=== PATIENT | male | born 1980 | race Caucasian/White ===

== ENCOUNTER 2018-05-08 17:25 | Inpatient (IN) | payer MEDICAID, OTHER ==
[~2018-05-08] VITALS: Ht 182.9 cm; Wt 82.3 kg
[2018-05-08 18:24] LABS: ANION GAP 13 mmol/L (8-16); CALCIUM, TOTAL 9.5 mg/dL (8.8-10.5); CARBON DIOXIDE 27 mmol/L (22-29); CHLORIDE 100 mmol/L (98-107); GLOMERULAR FILTR. RATE CALC > 60 mL/min (>60); GLUCOSE,RANDOM 89 mg/dL (70-110); POTASSIUM 4.3 mmol/L (3.5-5.1); SODIUM SERUM 140 mmol/L (136-145); UREA NITROGEN, BLOOD 18 mg/dL (7-18)
[2018-05-08] MEDS ORDERED: DiphenhydrAMINE HCL 50 MG/ML VIAL ONE (18:25)
[2018-05-08] MEDS ORDERED: HALOPERIDOL LACTATE 5 MG/ML VIAL ONE (18:25)
[2018-05-08] MEDS ORDERED: LORazepam 2 MG/ML VIAL ONE (18:25)
[2018-05-08 18:30] LABS: ALANINE AMINOTRANSFERASE 37 U/L (12-78); ALBUMIN 4.6 g/dL (3.4-5.0); ALKALINE PHOSPHATASE 68 U/L (46-116); ASPARTATE AMINOTRANSFERASE 58 U/L (15-37); BASOPHILS % (AUTO) 0.4 % (0.0-2.0); BILIRUBIN,TOTAL 0.9 mg/dL (0.1-1.0); EOSINOPHILS % (AUTO) 1.2 % (1.0-6.0); HEMATOCRIT 46.1 % (41-53); HEMOGLOBIN 16.3 g/dL (13.5-17.5); LYMPHOCYTES # (AUTO) 1.9 K/uL (1.0-4.8); LYMPHOCYTES % (AUTO) 22.6 % (22.0-44.0); MEAN CORPUSCULAR HEMOGLOBIN 33.9 pg (26.0-34.0); MEAN CORPUSCULAR HGB CONC 35.3 G/dL (31.0-37.0); MEAN CORPUSCULAR VOLUME 96 fL (80-100); MONOCYTES # (AUTO) 0.7 K/uL (0.1-1.0); MONOCYTES % (AUTO) 8.4 % (2.0-9.0); NEUTROPHILS # (AUTO) 5.5 K/uL (1.8-7.7); NEUTROPHILS % (AUTO) 67.4 % (40.0-70.0); PLATELET COUNT (AUTO) 288 K/uL (150-450); RED CELL DISTRIBUTION WIDTH 12.9 % (11.5-14.5); TOTAL PROTEIN, SERUM 8.7 g/dL (6.4-8.2)
[2018-05-08] MEDS ORDERED: LORazepam 2 MG/ML VIAL IM ONE (18:30)
[2018-05-08] MEDS ORDERED: HALOPERIDOL LACTATE 5 MG/ML VIAL IM ONE (18:30)
[2018-05-08] MEDS ORDERED: DiphenhydrAMINE HCL 50 MG/ML VIAL IM ONE (18:30)
[2018-05-08] MEDS ORDERED: QUEtiapine FUMARATE 100 MG TABLET PO PRN (20:00)
[2018-05-08] MEDS ORDERED: QUEtiapine FUMARATE 100 MG TABLET PO SCH (21:00)
[2018-05-09] VITALS (9 sets, daily range): BP systolic 114–129; BP diastolic 68–89
[2018-05-09 09:10] LABS: CHOL/HDL RATIO 2.2 (4.2-7.3); FREE T4 (FREE THYROXINE) 1.13 ng/dL (0.76-1.46); THYROID STIMULATING HORMONE 2.21 uIU/mL (0.36-3.74)
[2018-05-09] MEDS ORDERED: GuaiFENesin/D-METHORPHAN [SUGAR-FREE] 200-20MG/10 ML SYRUP UDCUP PO PRN (10:15)
[2018-05-09] MEDS ORDERED: MAGNESIUM HYDROXIDE SUSPENSION 30 ML UDCUP PO PRN (10:15)
[2018-05-09] MEDS ORDERED: MAG HYDROX/AL HYDROX/SIMETH ES 30 ML SUSPENSION UDCUP PO PRN (10:15)
[2018-05-09] MEDS ORDERED: LOPERAMIDE HCL 2 MG CAPSULE PO PRN (10:15)
[2018-05-09] MEDS ORDERED: TUBERCULIN, PURIFIED PROTEIN DERIVATIVE 5 TU/0.1 ML SYG ID ONE (10:15)
[2018-05-09] MEDS ORDERED: HydrOXYzine PAMOATE 50 MG CAPSULE PO PRN (10:15)
[2018-05-09] MEDS ORDERED: ACETAMINOPHEN 325 MG TABLET PO PRN (10:15)
[2018-05-09] MEDS: LORazepam 2 MG TABLET PO PRN (16:40)
[2018-05-09] MEDS: THIAMINE HCL 100 MG TABLET PO SCH (16:40)
[2018-05-09] MEDS: ZOLPIDEM TARTRATE 10 MG TABLET PO PRN (20:24)
[2018-05-10 06:08] VITALS: BP 128/87
[2018-05-10 08:14] VITALS: BP 123/60
[2018-05-10] MEDS: FOLIC ACID 1 MG TABLET PO SCH (08:28)
[2018-05-10] MEDS: THIAMINE HCL 100 MG TABLET PO SCH ×2 (08:29→16:35)
[2018-05-10] MEDS: NALTREXONE HCL 50 MG TABLET PO SCH (08:29)
[2018-05-10] MEDS: PARoxetine HCL 20 MG TABLET PO SCH (08:29)
[2018-05-10] MEDS: LORazepam 2 MG TABLET PO PRN ×2 (08:29→16:35)
[2018-05-10] MEDS: MULTIVITAMINS WITH MINERALS, THERAPEUTIC TABLET PO SCH (08:29)
[2018-05-10 16:00] VITALS: BP 136/85
[2018-05-10] MEDS ORDERED: NALT50TA PO (17:17)
[2018-05-10] MEDS ORDERED: PARO-37 PO (17:17)
[2018-05-10] MEDS: ZOLPIDEM TARTRATE 10 MG TABLET PO PRN (22:05)
[2018-05-11] MEDS ORDERED: MULT-1239 PO (05:07)
[2018-05-11] MEDS ORDERED: THIA100T67 PO (05:07)
[2018-05-11] MEDS ORDERED: PARO20TA24 PO (05:07)
[2018-05-11] MEDS ORDERED: FOLI1 PO (05:07)
[2018-05-11] MEDS ORDERED: NALT50TA6 PO (05:07)
[2018-05-11 08:46] VITALS: BP 138/80
[2018-05-11] MEDS: MULTIVITAMINS WITH MINERALS, THERAPEUTIC TABLET PO SCH (08:53)
[2018-05-11] MEDS: THIAMINE HCL 100 MG TABLET PO SCH (08:53)
[2018-05-11] MEDS: FOLIC ACID 1 MG TABLET PO SCH (08:53)
[2018-05-11] MEDS: PARoxetine HCL 20 MG TABLET PO SCH (08:53)
[2018-05-11] MEDS: NALTREXONE HCL 50 MG TABLET PO SCH (08:53)
== END 2018-05-11 09:55 | disposition home or self-care (01) | DRG 751 ==
LOC: EMS 17:26 → B3A 20:00 → B2S 05-10 08:58
PROVIDERS: ADMIT Psychiatry & Neurology Psychiatry; ATTEND Psychiatry & Neurology Psychiatry
DX: F33.2 Major depressive disorder, recurrent severe without psychotic features (principal); R45.851 Suicidal ideations; Z91.19 Patient's noncompliance with other medical treatment and regimen; F41.9 Anxiety disorder, unspecified; F12.20 Cannabis dependence, uncomplicated; F10.10 Alcohol abuse, uncomplicated; Y90.6 Blood alcohol level of 120-199 mg/100 ml; Z59.0 Homelessness; Z65.3 Problems related to other legal circumstances
CPT/HCPCS: 84436; 84439; 84443; 96372; 99285; G0480; J1200; J1630; J2060

== ENCOUNTER 2018-07-20 05:55 | Emergency (ER) | payer MEDICAID, OTHER ==
[~2018-07-20] VITALS: Ht 188 cm; Wt 95.5 kg
[~2018-07-20 05:55] MED LIST: NALT50TA PO; NALT50TA6 PO; PARO-37 PO; PARO20TA24 PO
[2018-07-20] MEDS ORDERED: HYDROCODONE/ACETAMINOPHEN 5-325 MG TABLET PO ONE (07:30)
[2018-07-20 07:31] VITALS: BP 120/84
== END 2018-07-20 08:16 | disposition home or self-care (01) ==
LOC: EMS 05:55
DX: S43.102A Unspecified dislocation of left acromioclavicular joint, initial encounter (principal); F32.9 Major depressive disorder, single episode, unspecified; F12.90 Cannabis use, unspecified, uncomplicated; V00.131A Fall from skateboard, initial encounter; Y93.89 Activity, other specified; Y92.89 Other specified places as the place of occurrence of the external cause; Y99.8 Other external cause status

== ENCOUNTER 2019-06-15 19:09 | Emergency (ER) | payer OTHER ==
[~2019-06-15] VITALS: Ht 188 cm; Wt 84.1 kg
[2019-06-15] MEDS ORDERED: BACITRACIN 0.9 GM PACKET OINTMENT TP ONE (19:45)
[2019-06-15] MEDS ORDERED: LIDOCAINE 1% 10 ML VIAL INJ ONE (19:45)
[2019-06-15] MEDS ORDERED: POVIDONE-IODINE 10% 15 ML SOLUTION UD TP ONE (19:45)
[2019-06-15] MEDS ORDERED: IBUPROFEN 800 MG TABLET PO ONE (21:15)
[2019-06-15 21:35] VITALS: BP 134/82
== END 2019-06-15 21:54 | disposition home or self-care (01) ==
LOC: EMS 19:10
DX: S02.2XXA Fracture of nasal bones, initial encounter for closed fracture (principal); S05.42XA Penetrating wound of orbit with or without foreign body, left eye, initial encounter; F10.10 Alcohol abuse, uncomplicated; F32.9 Major depressive disorder, single episode, unspecified; F12.90 Cannabis use, unspecified, uncomplicated; Z88.0 Allergy status to penicillin; Y90.9 Presence of alcohol in blood, level not specified; Y08.89XA Assault by other specified means, initial encounter; Y93.89 Activity, other specified; Y92.89 Other specified places as the place of occurrence of the external cause; Y99.8 Other external cause status
CPT/HCPCS: 12013; 70450; 99284; J3490

== ENCOUNTER 2019-11-03 07:27 | Emergency (ER) | payer OTHER ==
[~2019-11-03] VITALS: Ht 188 cm; Wt 77.3 kg
[2019-11-03] MEDS ORDERED: KETOROLAC TROMETHAMINE 30 MG/ML VIAL IM ONE (08:00)
[2019-11-03] MEDS ORDERED: LIDOCAINE 5% TRANSDERMAL PATCH TD ONE (08:00)
[2019-11-03] MEDS ORDERED: CYCLOBENZAPRINE HCL 10 MG TABLET PO ONE (08:00)
[2019-11-03 08:57] VITALS: BP 123/79
== END 2019-11-03 09:03 | disposition home or self-care (01) ==
LOC: EMS 07:28
DX: M54.5 Low back pain (principal); F32.9 Major depressive disorder, single episode, unspecified; F12.90 Cannabis use, unspecified, uncomplicated; G89.29 Other chronic pain; Z88.0 Allergy status to penicillin
CPT/HCPCS: 96372; 99283; J1885

== ENCOUNTER 2020-01-14 06:46 | Emergency (ER) | payer OTHER ==
[~2020-01-14] VITALS: Ht 188 cm; Wt 86.4 kg
[2020-01-14 06:47] VITALS: BP 112/69
[2020-01-14] MEDS ORDERED: LIDOCAINE 5% TRANSDERMAL PATCH TD ONE (07:15)
[2020-01-14] MEDS ORDERED: KETOROLAC TROMETHAMINE 60 MG/2 ML VIAL IM ONE (07:15)
== END 2020-01-14 08:15 | disposition home or self-care (01) ==
LOC: EMS 06:46
DX: M54.5 Low back pain (principal); G89.29 Other chronic pain; F41.9 Anxiety disorder, unspecified; F31.9 Bipolar disorder, unspecified; F17.200 Nicotine dependence, unspecified, uncomplicated; F12.90 Cannabis use, unspecified, uncomplicated; Z88.0 Allergy status to penicillin
CPT/HCPCS: 99283; J1885

== ENCOUNTER 2021-02-09 06:59 | Emergency (ER) | payer OTHER ==
[~2021-02-09] VITALS: Ht 188 cm; Wt 86.4 kg
[2021-02-09] MEDS ORDERED: IBUPROFEN 600 MG TABLET PO ONE (08:30)
[2021-02-09 08:45] VITALS: BP 137/81
== END 2021-02-09 08:55 | disposition home or self-care (01) ==
LOC: EMS 07:00
DX: S42.022A Displaced fracture of shaft of left clavicle, initial encounter for closed fracture (principal); V87.8XXA Person injured in other specified noncollision transport accidents involving motor vehicle (traffic), initial encounter; Y93.89 Activity, other specified; Y92.488 Other paved roadways as the place of occurrence of the external cause; Y99.8 Other external cause status
CPT/HCPCS: 10060; 29240; 71045; 99284

== ENCOUNTER 2023-12-15 00:56 | Emergency (ER) | payer OTHER ==
[~2023-12-15] VITALS: Ht 188 cm; Wt 90.9 kg
[2023-12-15 01:00] VITALS: TEMP 97.7
[2023-12-15] MEDS: ChlordiazePOXIDE HCL 25 MG CAPSULE PO ONE (01:21)
[2023-12-15] MEDS: SODIUM CHLORIDE 0.9% 1,000 ML IV ONE (01:23)
[2023-12-15 01:33] LABS: BASOPHILS % (AUTO) 0.3 % (0.0-2.0); EOSINOPHILS % (AUTO) 0.6 % (1.0-6.0); HEMATOCRIT 43.6 % (41-53); HEMOGLOBIN 15.4 g/dL (13.5-17.5); LYMPHOCYTES # (AUTO) 1.6 K/uL (1.0-4.8); LYMPHOCYTES % (AUTO) 22.1 % (22.0-44.0); MEAN CORPUSCULAR HEMOGLOBIN 34.8 pg (26.0-34.0); MEAN CORPUSCULAR HGB CONC 35.4 G/dL (31.0-37.0); MEAN CORPUSCULAR VOLUME 98 fL (80-100); MONOCYTES # (AUTO) 0.6 K/uL (0.1-1.0); MONOCYTES % (AUTO) 9.1 % (2.0-9.0); NEUTROPHILS # (AUTO) 4.8 K/uL (1.8-7.7); NEUTROPHILS % (AUTO) 67.9 % (40.0-70.0); PLATELET COUNT (AUTO) 226 K/uL (150-450); RED BLOOD CELL COUNT(AUTO) 4.43 MIL/uL (4.50-5.90); RED CELL DISTRIBUTION WIDTH 13.5 % (11.5-14.5)
[2023-12-15 01:39] LABS: PH,URINE DRUG SCREEN 5.5 (5.0-8.0)
[2023-12-15 01:40] LABS: ANION GAP 12 mmol/L (8-16); CALCIUM, TOTAL 9.1 mg/dL (8.8-10.5); CARBON DIOXIDE 28 mmol/L (22-29); CHLORIDE 96 mmol/L (98-107); CREATININE 1.05 mg/dL (0.60-1.30); GLOMERULAR FILTR. RATE CALC > 60 mL/min (>60); GLUCOSE,RANDOM 124 mg/dL (70-110); POTASSIUM 4.1 mmol/L (3.5-5.1); SODIUM SERUM 136 mmol/L (136-145); UREA NITROGEN, BLOOD 14 mg/dL (7-18)
[2023-12-15 01:45] LABS: ALCOHOL, URINE DRUG SCREEN POSITIVE (NEGATIVE); AMPHET/METH SCREEN,URINE NEGATIVE (NEGATIVE); BARBITURATE SCREEN, URINE NEGATIVE (NEGATIVE); BENZODIAZEPINES SCREEN,URINE NEGATIVE (NEGATIVE); CANNABINOID SCREEN,URINE POSITIVE (NEGATIVE); COCAINE SCREEN,URINE POSITIVE (NEGATIVE); METHADONE SCREEN, URINE NEGATIVE (NEGATIVE); OPIATE SCREEN,URINE POSITIVE (NEGATIVE); PHENCYCLIDINE SCREEN,URINE NEGATIVE (NEGATIVE)
[2023-12-15 01:46] LABS: ALANINE AMINOTRANSFERASE 36 U/L (12-78); ALCOHOL, BLOOD (SERUM) 11 mg/dL (0-10); ALKALINE PHOSPHATASE 75 U/L (46-116); ASPARTATE AMINOTRANSFERASE 59 U/L (15-37); TOTAL PROTEIN, SERUM 8.1 g/dL (6.4-8.2)
[2023-12-15] MEDS ORDERED: CHLO25CA6 PO (04:51)
[2023-12-15 05:35] VITALS: BP 125/84; PULSE 78; RESP 20
[2023-12-15] MEDS: KETOROLAC TROMETHAMINE 30 MG/ML VIAL IM ONE (05:38)
== END 2023-12-15 05:43 | disposition home or self-care (01) ==
LOC: EMS 00:56
DX: F10.129 Alcohol abuse with intoxication, unspecified (principal); F12.90 Cannabis use, unspecified, uncomplicated; F41.9 Anxiety disorder, unspecified; F31.9 Bipolar disorder, unspecified; Z98.890 Other specified postprocedural states; Z88.0 Allergy status to penicillin; Y90.9 Presence of alcohol in blood, level not specified
CPT/HCPCS: 99284; 96360; 80053; 85025; 36415; 93005; 96372; 80307; G0480; J1885; J7030

== ENCOUNTER 2024-08-14 11:58 | Emergency (ER) | payer OTHER ==
[~2024-08-14 11:58] MED LIST changes: +CHLO25CA6 PO; -NALT50TA PO; -NALT50TA6 PO; -PARO-37 PO; -PARO20TA24 PO
== END 2024-08-14 12:35 | disposition left against medical advice (07) ==
LOC: EMS 11:58
DX: S09.90XA Unspecified injury of head, initial encounter (principal); Z53.21 Procedure and treatment not carried out due to patient leaving prior to being seen by health care provider; X58.XXXA Exposure to other specified factors, initial encounter; Y93.89 Activity, other specified; Y92.89 Other specified places as the place of occurrence of the external cause; Y99.8 Other external cause status

== ENCOUNTER 2025-06-04 06:32 | Emergency (ER) | payer OTHER ==
[~2025-06-04] VITALS: Ht 188 cm; Wt 90.9 kg
[~2025-06-04 06:32] MED LIST changes: -CHLO25CA6 PO; +HYDR-5256 PO; +LIDO700A30 TD
[2025-06-04 06:43] VITALS: TEMP 98.8
[2025-06-04 07:16] LABS: PLATELET COUNT (AUTO) 222 K/uL (150-450); RED BLOOD CELL COUNT(AUTO) 4.43 MIL/uL (4.50-5.90); RED CELL DISTRIBUTION WIDTH 14.0 % (11.5-14.5); WHITE BLOOD COUNT (AUTO) 11.0 K/uL (4.5-11.0)
[2025-06-04 07:23] LABS: CALCIUM, TOTAL 8.6 mg/dL (8.8-10.5); CREATININE 0.77 mg/dL (0.60-1.30); GLOMERULAR FILTR. RATE CALC > 60 mL/min (>60); GLUCOSE,RANDOM 105 mg/dL (70-110); SODIUM SERUM 133 mmol/L (136-145); UREA NITROGEN, BLOOD 9 mg/dL (7-18)
[2025-06-04 07:26] LABS: ALCOHOL, BLOOD (SERUM) 145 mg/dL (0-10)
[2025-06-04 07:31] LABS: TROPONIN I-HIGH SENSITIVITY 5 ng/L (<76)
[2025-06-04] MEDS: FAMOTIDINE 20 MG/2 ML VIAL IVP ONE (07:31)
[2025-06-04] MEDS: LORazepam 2 MG/ML VIAL IVP ONE (07:31)
[2025-06-04] MEDS: SODIUM CHLORIDE 0.9% 1,000 ML IV ONE (07:32)
[2025-06-04] MEDS: ONDANSETRON HCL 4 MG/2 ML VIAL IVP ONE (07:32)
[2025-06-04 07:34] LABS: ASPARTATE AMINOTRANSFERASE 83 U/L (15-37); CREATINE KINASE, TOTAL ONLY 1076 U/L (39-308); TOTAL PROTEIN, SERUM 7.7 g/dL (6.4-8.2)
[2025-06-04] MEDS ORDERED: ONDANSETRON HCL 4 MG/2 ML VIAL IVP PRN (09:00)
[2025-06-04] MEDS ORDERED: ACETAMINOPHEN 325 MG TABLET PO PRN (09:00)
[2025-06-04] MEDS: DOCUSATE SODIUM 100 MG CAPSULE PO SCH (09:00)
[2025-06-04] MEDS: 1: MAGNESIUM SULFATE 2 GM, MVI, ADULT NO.1 WITH VIT K 10 ML, THIAMINE 100 MG, FOLIC ACID IV SCH (09:42)
[2025-06-04 10:48] LABS: APPEARANCE,URINE CLEAR (CLEAR); GLUCOSE, URINE (UA) NEGATIVE (NEGATIVE); LEUKOCYTE ESTERASE ,URINE NEGATIVE (NEGATIVE); NITRATE,URINE NEGATIVE (NEGATIVE); OCCULT BLOOD,URINE NEGATIVE (NEGATIVE); PH,URINE DRUG SCREEN 6.5 (5.0-8.0); SPECIFIC GRAVITIY, URINE 1.006 (1.003-1.030)
[2025-06-04 11:09] LABS: ALCOHOL, URINE DRUG SCREEN POSITIVE (NEGATIVE); AMPHET/METH SCREEN,URINE NEGATIVE (NEGATIVE); BARBITURATE SCREEN, URINE NEGATIVE (NEGATIVE); CANNABINOID SCREEN,URINE POSITIVE (NEGATIVE); COCAINE SCREEN,URINE NEGATIVE (NEGATIVE); METHADONE SCREEN, URINE NEGATIVE (NEGATIVE)
[2025-06-04 11:19] VITALS: BP 139/95; PULSE 89; RESP 20; O2SAT 96
[2025-06-04] MEDS ORDERED: HEPARIN SODIUM,PORCINE 5,000 UNITS/ML VIAL SQ SCH (16:00)
== END 2025-06-04 11:20 | disposition admitted as inpatient to this hospital (09) ==
LOC: EMS 06:36 → UNDOADMIN 08:53 → EDH 08:53
DX: F10.239 Alcohol dependence with withdrawal, unspecified (principal); M62.82 Rhabdomyolysis; R11.2 Nausea with vomiting, unspecified; F41.9 Anxiety disorder, unspecified; F31.9 Bipolar disorder, unspecified; F12.90 Cannabis use, unspecified, uncomplicated; Z79.899 Other long term (current) drug therapy; Z88.0 Allergy status to penicillin; Z98.890 Other specified postprocedural states; Y90.6 Blood alcohol level of 120-199 mg/100 ml
CPT/HCPCS: 99285; 96365; 96375; 96361; 80048; 80076; 81001; 82550; 83690; 83735; 83880; 84484; 85025; 85610; 85730; 36415; 93005; 80307; G0480; J3490 ×3; J2060; J2405; J3411; J3475; J7030; G0378

== ENCOUNTER 2025-07-11 09:14 | Emergency (ER) | payer OTHER ==
[~2025-07-11] VITALS: Ht 188 cm; Wt 88.6 kg
[2025-07-11 09:16] VITALS: BP 120/86; PULSE 72; RESP 18; TEMP 97.7; O2SAT 97
[2025-07-11] MEDS: HYDROCODONE/ACETAMINOPHEN 10-325 MG TABLET PO ONE (12:26)
[2025-07-11] MEDS ORDERED: OXYC5 PO (17:00)
== END 2025-07-11 15:14 | disposition home or self-care (01) ==
LOC: EMS 09:24
DX: S42.032A Displaced fracture of lateral end of left clavicle, initial encounter for closed fracture (principal); F31.9 Bipolar disorder, unspecified; F41.9 Anxiety disorder, unspecified; F10.20 Alcohol dependence, uncomplicated; F12.90 Cannabis use, unspecified, uncomplicated; Z88.0 Allergy status to penicillin; Z79.899 Other long term (current) drug therapy; Z98.890 Other specified postprocedural states; W19.XXXA Unspecified fall, initial encounter; Y93.01 Activity, walking, marching and hiking; Y92.410 Unspecified street and highway as the place of occurrence of the external cause; Y99.8 Other external cause status; Y90.9 Presence of alcohol in blood, level not specified
CPT/HCPCS: 99283